=== PATIENT | male | born 1945 | race Caucasian/White ===

== ENCOUNTER 2017-08-06 02:35 | Day surgery (SDC) | payer OTHER ==
[~2017-08-06] VITALS: Ht 182.9 cm; Wt 102.0 kg
[~2017-08-06 02:35] MED LIST: 8HR ARTHRITIS650 MG PO; Atarax10 MG PO; CYCL10 PO; FOLI1 PO; LISI20 PO; METTREX2.5 PO; MULTI VITAMIN1 EACH PO; NIFE30ER PO; Nitrostat0.4 MG SL; PRAZ5 PO; SERT50 PO; SIMV80 PO; TAMS.4ER PO
== END 2017-08-06 11:00 | disposition home or self-care (01) ==
LOC: MHTC 02:35
PROC: B211YZZ Fluoroscopy of Multiple Coronary Arteries using Other Contrast (ICD-10-PCS; principal; 2017-08-06)
PROC: 4A023N7 Measurement of Cardiac Sampling and Pressure, Left Heart, Percutaneous Approach (ICD-10-PCS; principal; 2017-08-06)
DX: I20.8 Other forms of angina pectoris (principal); R94.39 Abnormal result of other cardiovascular function study; I10 Essential (primary) hypertension; E78.5 Hyperlipidemia, unspecified; G47.33 Obstructive sleep apnea (adult) (pediatric)
CPT/HCPCS: 93458; 99152; 99153; C1769; C1894; J0690; J1644; J2250; J3010; J7030; Q9967

== ENCOUNTER 2020-01-31 22:40 | Emergency (ER) | payer OTHER ==
[~2020-01-31] VITALS: Ht 182.9 cm; Wt 95.2 kg
[~2020-01-31 22:40] MED LIST changes: -NIFE30ER PO; +NIFE60ER PO; +SERT100 PO; -SERT50 PO
[2020-01-31 23:19] LABS: BASOPHILS ABSOLUTE AUTO 0.03 K/mm3 (0.00-0.23); BASOPHILS PERCENT AUTO 0 % (0-2); EOSINOPHILS ABSOLUTE AUTO 0.14 K/mm3 (0.00-0.68); EOSINOPHILS PERCENT AUTO 2 % (0-6); Hematocrit 41.8 % (37.0-53.0); Hemoglobin 13.8 g/dL (13.5-17.5); IMMATURE GRAN ABSOLUTE AUTO 0.03 K/mm3 (0.00-0.10); IMMATURE GRAN PERCENT AUTO 0 % (0-1); LYMPHOCYTES ABSOLUTE AUTO 0.88 K/mm3 (0.84-5.20); LYMPHOCYTES PERCENT AUTO 10 % (21-46); MONOCYTES ABSOLUTE AUTO 1.11 K/mm3 (0.16-1.47); MONOCYTES PERCENT AUTO 12 % (4-13); Mean Corpuscular HGB 32.4 pg (26.0-34.0); Mean Corpuscular Volume 98 fL (80-100); Mean Platelet Volume 10.5 fL (9.1-12.4); NEUTROPHILS ABSOLUTE AUTO 6.89 K/mm3 (1.96-9.15); NEUTROPHILS PERCENT AUTO 76 % (41-73); Platelet Count 179 K/mm3 (150-400); RDW Coefficient Variation 13.9 % (11.7-14.2); RDW Standard Deviation 50.4 fL (35.1-46.3); Red Blood Cell Count 4.26 M/mm3 (4.30-5.90); White Blood Cell Count 9.08 K/mm3 (4.00-11.30)
[2020-01-31 23:34] LABS: Alanine Aminotransfer (ALT/SGP 23 U/L (12-78); Albumin, Blood 3.7 g/dL (3.4-5.0); Albumin/Globulin Ratio 0.9 (0.8-1.8); Alk Phos 115 U/L (50-136); Anion Gap 5 mmol/L (6-16); Aspartate Aminotrans (AST/SGOT 20 U/L (12-37); Bilirubin, Total 0.5 mg/dL (0.1-1.0); Blood Urea Nitrogen 13 mg/dL (8-24); Bun/Creatinine Ratio 9.6 (12.0-20.0); CO2, Blood 30 mmol/L (21-32); Calcium, Blood 8.8 mg/dL (8.5-10.1); Chloride, Blood 106 mmol/L (98-108); Creatinine, Blood 1.36 mg/dL (0.60-1.20); Glomerular Filtration Rate 54 (60-); Glucose, Blood 124 mg/dL (70-99); Potassium, Blood 3.3 mmol/L (3.5-5.5); Sodium, Blood 141 mmol/L (136-145); Total Protein, Blood 7.7 g/dL (6.4-8.2); Troponin I <0.015 ng/mL (0.000-0.040)
[2020-02-01] MEDS ORDERED: BUPR150ER PO (00:57)
[2020-02-01] MEDS ORDERED: Aspir 8181 MG PO (00:57)
[2020-02-01] MEDS ORDERED: Isosorbide Mono30 MG PO (00:58)
[2020-02-01] MEDS ORDERED: Vitamin B-121000 MCG PO (00:58)
[2020-02-01] MEDS ORDERED: LISI5 PO (00:59)
[2020-02-01] MEDS ORDERED: MELA3 PO (01:00)
[2020-02-01] MEDS ORDERED: METO25ER PO (01:00)
[2020-02-01] MEDS ORDERED: RANO500T PO (01:01)
== END 2020-02-01 02:05 | disposition short-term general hospital (02) ==
LOC: ER 22:40
PROVIDERS: Emergency Medicine
DX: I71.02 Dissection of abdominal aorta (principal); Z88.5 Allergy status to narcotic agent; Z79.899 Other long term (current) drug therapy
CPT/HCPCS: 36415; 71046; 71275; 74175; 80053; 83605; 84484; 85025; 93005; 93010; 96361; 96365; 96375; 99285-25; J2270; J2405; J3010; J7030; J7050; Q9967; U0004

== ENCOUNTER 2020-06-03 12:26 | Emergency (ER) | payer OTHER ==
[~2020-06-03] VITALS: Ht 182.9 cm; Wt 93.0 kg
[~2020-06-03 12:26] MED LIST changes: +Aspir 8181 MG PO; +BUPR150ER PO; +Isosorbide Mono30 MG PO; +LISI5 PO; +MELA3 PO; +METO25ER PO; +RANO500T PO; +Vitamin B-121000 MCG PO
[2020-06-03 13:29] LABS: BASOPHILS ABSOLUTE AUTO 0.03 K/mm3 (0.00-0.23); BASOPHILS PERCENT AUTO 0 % (0-2); EOSINOPHILS PERCENT AUTO 1 % (0-6); Hematocrit 39.5 % (37.0-53.0); Hemoglobin 12.9 g/dL (13.5-17.5); IMMATURE GRAN ABSOLUTE AUTO 0.02 K/mm3 (0.00-0.10); IMMATURE GRAN PERCENT AUTO 0 % (0-1); LYMPHOCYTES ABSOLUTE AUTO 0.66 K/mm3 (0.84-5.20); LYMPHOCYTES PERCENT AUTO 9 % (21-46); MONOCYTES ABSOLUTE AUTO 0.58 K/mm3 (0.16-1.47); MONOCYTES PERCENT AUTO 8 % (4-13); Mean Corpuscular HGB 30.1 pg (26.0-34.0); Mean Corpuscular HGB Conc 32.7 g/dL (31.5-36.5); Mean Corpuscular Volume 92 fL (80-100); Mean Platelet Volume 9.7 fL (9.1-12.4); NEUTROPHILS ABSOLUTE AUTO 5.94 K/mm3 (1.96-9.15); NEUTROPHILS PERCENT AUTO 81 % (41-73); Platelet Count 171 K/mm3 (150-400); RDW Coefficient Variation 16.2 % (11.7-14.2); RDW Standard Deviation 54.1 fL (35.1-46.3); Red Blood Cell Count 4.29 M/mm3 (4.30-5.90); White Blood Cell Count 7.33 K/mm3 (4.00-11.30)
[2020-06-03 13:49] LABS: Alanine Aminotransfer (ALT/SGP 19 U/L (12-78); Albumin, Blood 3.3 g/dL (3.4-5.0); Albumin/Globulin Ratio 0.7 (0.8-1.8); Alk Phos 111 U/L (50-136); Anion Gap 7 mmol/L (6-16); Aspartate Aminotrans (AST/SGOT 16 U/L (12-37); Bilirubin, Total 0.3 mg/dL (0.1-1.0); Blood Urea Nitrogen 14 mg/dL (8-24); Bun/Creatinine Ratio 11.5 (12.0-20.0); CO2, Blood 26 mmol/L (21-32); Calcium, Blood 8.9 mg/dL (8.5-10.1); Chloride, Blood 108 mmol/L (98-108); Creatinine, Blood 1.22 mg/dL (0.60-1.20); Glomerular Filtration Rate >60 (60-); Glucose, Blood 132 mg/dL (70-99); Potassium, Blood 3.1 mmol/L (3.5-5.5); Sodium, Blood 141 mmol/L (136-145); Total Protein, Blood 8.3 g/dL (6.4-8.2)
== END 2020-06-03 15:20 | disposition home or self-care (01) ==
LOC: ER 12:26
PROVIDERS: Physician Assistant
DX: R03.0 Elevated blood-pressure reading, without diagnosis of hypertension (principal); Z79.899 Other long term (current) drug therapy; Z87.891 Personal history of nicotine dependence
CPT/HCPCS: 36415; 71046; 80053; 84484; 85025; 93005; 93010; 99285-25

== ENCOUNTER 2023-02-11 13:03 | Emergency (ER) | payer OTHER ==
[~2023-02-11] VITALS: Ht 182.9 cm; Wt 99.8 kg
[~2023-02-11 13:03] MED LIST changes: +LOPE2C PO
[2023-02-11 13:51] LABS: BASOPHILS ABSOLUTE AUTO 0.01 K/mm3 (0.00-0.23); BASOPHILS PERCENT AUTO 0 % (0-2); EOSINOPHILS ABSOLUTE AUTO 0.01 K/mm3 (0.00-0.68); EOSINOPHILS PERCENT AUTO 0 % (0-6); Hematocrit 38.1 % (37.0-53.0); Hemoglobin 12.9 g/dL (13.5-17.5); IMMATURE GRAN ABSOLUTE AUTO 0.01 K/mm3 (0.00-0.10); IMMATURE GRAN PERCENT AUTO 0 % (0-1); LYMPHOCYTES ABSOLUTE AUTO 0.29 K/mm3 (0.84-5.20); LYMPHOCYTES PERCENT AUTO 5 % (21-46); MONOCYTES ABSOLUTE AUTO 0.76 K/mm3 (0.16-1.47); MONOCYTES PERCENT AUTO 14 % (4-13); Mean Corpuscular HGB 32.7 pg (26.0-34.0); Mean Corpuscular HGB Conc 33.9 g/dL (31.5-36.5); Mean Corpuscular Volume 97 fL (80-100); Mean Platelet Volume 9.8 fL (9.1-12.4); NEUTROPHILS ABSOLUTE AUTO 4.26 K/mm3 (1.96-9.15); NEUTROPHILS PERCENT AUTO 80 % (41-73); Platelet Count 119 K/mm3 (150-400); RDW Coefficient Variation 14.4 % (11.7-14.2); RDW Standard Deviation 50.9 fL (35.1-46.3); Red Blood Cell Count 3.94 M/mm3 (4.30-5.90); White Blood Cell Count 5.34 K/mm3 (4.00-11.30)
[2023-02-11 14:13] LABS: Albumin, Blood 3.3 g/dL (3.4-5.0); Albumin/Globulin Ratio 0.8 (0.8-1.8); Bilirubin, Total 0.4 mg/dL (0.1-1.0); Bun/Creatinine Ratio 11.7 (12.0-20.0); Calcium, Blood 8.5 mg/dL (8.5-10.1); Creatinine, Blood 1.03 mg/dL (0.60-1.20); Potassium, Blood 3.1 mmol/L (3.5-5.5); Total Protein, Blood 7.3 g/dL (6.4-8.2)
[2023-02-11 17:30] VITALS: BP 187/99
[2023-02-11] MEDS ORDERED: GABA300 PO (17:34)
== END 2023-02-11 17:39 | disposition home or self-care (01) ==
LOC: ER 13:03
PROVIDERS: Physician Assistant
DX: M54.81 Occipital neuralgia (principal); I10 Essential (primary) hypertension; Z88.5 Allergy status to narcotic agent; Z79.899 Other long term (current) drug therapy; Z87.891 Personal history of nicotine dependence
CPT/HCPCS: 64405; 71046; 80053; 83690; 84484; 85025; 93005; 93010; 96374-59; 96375-59; 99284-25; A9270; J1885; J2765

== ENCOUNTER 2023-03-10 02:37 | Observation (INO) | payer OTHER ==
[~2023-03-10] VITALS: Ht 182.9 cm; Wt 91.1 kg
[~2023-03-10 02:37] MED LIST changes: +GABA300 PO; -LISI20 PO; +Prinivil10 MG PO; +RANEXA1000 M1 PO; -RANO500T PO
[2023-03-10 03:19] LABS: BASOPHILS ABSOLUTE AUTO 0.03 K/mm3 (0.00-0.23); BASOPHILS PERCENT AUTO 0 % (0-2); EOSINOPHILS ABSOLUTE AUTO 0.01 K/mm3 (0.00-0.68); EOSINOPHILS PERCENT AUTO 0 % (0-6); Hematocrit 40.6 % (37.0-53.0); Hemoglobin 13.9 g/dL (13.5-17.5); IMMATURE GRAN ABSOLUTE AUTO 0.07 K/mm3 (0.00-0.10); IMMATURE GRAN PERCENT AUTO 1 % (0-1); LYMPHOCYTES ABSOLUTE AUTO 0.37 K/mm3 (0.84-5.20); LYMPHOCYTES PERCENT AUTO 4 % (21-46); MONOCYTES ABSOLUTE AUTO 0.51 K/mm3 (0.16-1.47); MONOCYTES PERCENT AUTO 5 % (4-13); Mean Corpuscular HGB 33.3 pg (26.0-34.0); Mean Corpuscular HGB Conc 34.2 g/dL (31.5-36.5); Mean Corpuscular Volume 97 fL (80-100); Mean Platelet Volume 9.5 fL (9.1-12.4); NEUTROPHILS ABSOLUTE AUTO 8.95 K/mm3 (1.96-9.15); NEUTROPHILS PERCENT AUTO 90 % (41-73); Platelet Count 170 K/mm3 (150-400); RDW Coefficient Variation 14.3 % (11.7-14.2); RDW Standard Deviation 50.3 fL (35.1-46.3); Red Blood Cell Count 4.17 M/mm3 (4.30-5.90); White Blood Cell Count 9.94 K/mm3 (4.00-11.30)
[2023-03-10 03:37] LABS: Albumin, Blood 3.8 g/dL (3.4-5.0); Albumin/Globulin Ratio 0.8 (0.8-1.8); Bilirubin, Total 0.5 mg/dL (0.1-1.0); Bun/Creatinine Ratio 12.6 (12.0-20.0); Calcium, Blood 9.1 mg/dL (8.5-10.1); Creatinine, Blood 1.9 mg/dL (0.60-1.20); Globulin, Blood 4.6 g/dL (2.2-4.0); Potassium, Blood 3.4 mmol/L (3.5-5.5); Total Protein, Blood 8.4 g/dL (6.4-8.2)
[2023-03-10 04:10] LABS: Source, Urine Clean Catch
[2023-03-10 04:12] LABS: Bilirubin, Urine Neg (Neg); Blood, Urine 3+ (Neg); Glucose Qualitative, Urine Neg (Neg); Ketones, Urine Neg (Neg); Leukocyte Esterase, Urine Neg (Neg); Nitrite, Urine Neg (Neg); Protein, Urine 1+ (Neg); Urobilinogen, Urine NORM (Normal)
[2023-03-10 04:39] LABS: Appearance, Urine Clear (Clear); Color, Urine Yellow (P-Yellow)
[2023-03-10 04:40] LABS: Bacteria Few /hpf; Squamous Epithelial Cells Not Seen /hpf (Few); White Blood Cells, Urine 0-2 /hpf (0-5)
[2023-03-10 07:30] VITALS: BP 184/104
[2023-03-10] MEDS ORDERED: EUTHYROX88 MCG PO (07:57)
[2023-03-10] MEDS ORDERED: AMLO10 PO (07:57)
[2023-03-10] MEDS ORDERED: MINIPRESS5 MG PO (07:58)
[2023-03-10] MEDS ORDERED: Buspirone HCl15 MG PO ×2 (08:01→15:10)
[2023-03-10] MEDS ORDERED: Elidel30 GM TOP (08:01)
[2023-03-10] MEDS ORDERED: GABA300 PO (08:03)
[2023-03-10 09:00] VITALS: BP 142/74
[2023-03-10 12:11] VITALS: BP 145/68
[2023-03-10 13:19] LABS: Bun/Creatinine Ratio 13.9 (12.0-20.0); Calcium, Blood 8.4 mg/dL (8.5-10.1); Creatinine, Blood 1.66 mg/dL (0.60-1.20); Potassium, Blood 3.1 mmol/L (3.5-5.5)
[2023-03-10] MEDS ORDERED: METO100ER PO (14:18)
[2023-03-10] MEDS ORDERED: BISA5EC PO (14:24)
[2023-03-10] MEDS ORDERED: ATOR40TA PO (14:25)
[2023-03-10] MEDS ORDERED: FERSU300 PO (14:26)
[2023-03-10] MEDS ORDERED: DOC250 PO (14:26)
[2023-03-10] MEDS ORDERED: FOLI1 PO (14:27)
[2023-03-10] MEDS ORDERED: FINA5 PO (14:27)
--- NOTE | 2023-03-10 14:30 | NUR ---
Confirmed the home medication list with Pamella, pt's , by phone.
[2023-03-10 14:38] VITALS: BP 137/83
[2023-03-10 17:36] VITALS: BP 151/79
--- NOTE | 2023-03-10 18:43 | NUR ---
TRANSFER 337 PT TRANSFERED FROM PCU 9 TO 337 VIA W/C. REPORT RECIEVED FROM LORE GUILLEN. CARE ONGOING.
[2023-03-10 20:42] VITALS: BP 159/83
[2023-03-11] MEDS ORDERED: Inzo Antifun141.7 GM TOP (02:29)
[2023-03-11] MEDS ORDERED: LACT PO (02:29)
[2023-03-11] MEDS ORDERED: LIDO700A20 TOP (02:30)
[2023-03-11] MEDS ORDERED: POLYCARBOPHIL PO (02:31)
[2023-03-11] MEDS ORDERED: MAGNESIUM OXID500 MG PO (02:32)
[2023-03-11] MEDS ORDERED: ALEVE ARTHRITI100 GM TOP (02:37)
[2023-03-11] MEDS ORDERED: Ketoconazole120 ML TOP (02:37)
--- NOTE | 2023-03-11 04:03 | NUR ---
SHIFT SUMMARY 73 YR M TRANSFERED TO MEDICAL FLOOR FROM PCU ON 03/10/23 FOR ACUTE RENAL INSUFFICIENCY. FULL CODE. NO ACUTE CHANGES THIS SHIFT. PT STATES THAT HE IS NO LONGER HAVING PAIN AND HE IS FEELING MUCH BETTER. HE APPEARS TO HAVE RESTED COMFORTABLY FOR MOST OF THIS SHIFT. CHENG IS PATENT AND DRAINING TO GRAVITY. PT IS VERY PLEASANT AND COOPERATIVE WITH CARE. BED IN LOW POSITION AND CALL LIGHT IN REACH.
[2023-03-11 04:16] VITALS: BP 173/92
[2023-03-11 05:14] LABS: BASOPHILS ABSOLUTE AUTO 0.03 K/mm3 (0.00-0.23); BASOPHILS PERCENT AUTO 0 % (0-2); EOSINOPHILS ABSOLUTE AUTO 0.19 K/mm3 (0.00-0.68); EOSINOPHILS PERCENT AUTO 2 % (0-6); Hematocrit 34.4 % (37.0-53.0); Hemoglobin 11.7 g/dL (13.5-17.5); IMMATURE GRAN ABSOLUTE AUTO 0.09 K/mm3 (0.00-0.10); IMMATURE GRAN PERCENT AUTO 1 % (0-1); LYMPHOCYTES ABSOLUTE AUTO 0.97 K/mm3 (0.84-5.20); LYMPHOCYTES PERCENT AUTO 10 % (21-46); MONOCYTES ABSOLUTE AUTO 1.12 K/mm3 (0.16-1.47); MONOCYTES PERCENT AUTO 12 % (4-13); Mean Corpuscular Volume 97 fL (80-100); Mean Platelet Volume 9.6 fL (9.1-12.4); NEUTROPHILS ABSOLUTE AUTO 7.14 K/mm3 (1.96-9.15); NEUTROPHILS PERCENT AUTO 75 % (41-73); Platelet Count 165 K/mm3 (150-400); RDW Coefficient Variation 14.7 % (11.7-14.2); RDW Standard Deviation 52.4 fL (35.1-46.3); Red Blood Cell Count 3.55 M/mm3 (4.30-5.90); White Blood Cell Count 9.54 K/mm3 (4.00-11.30)
[2023-03-11 06:37] LABS: Albumin, Blood 2.9 g/dL (3.4-5.0); Albumin/Globulin Ratio 0.8 (0.8-1.8); Bilirubin, Total 0.6 mg/dL (0.1-1.0); Calcium, Blood 8.4 mg/dL (8.5-10.1); Creatinine, Blood 1.6 mg/dL (0.60-1.20); Globulin, Blood 3.6 g/dL (2.2-4.0); Magnesium, Blood 2.3 mg/dL (1.6-2.4); Potassium, Blood 3.2 mmol/L (3.5-5.5); Total Protein, Blood 6.5 g/dL (6.4-8.2)
[2023-03-11 07:24] VITALS: BP 163/86
[2023-03-11] MEDS ORDERED: ACET325 PO (11:16)
--- NOTE | 2023-03-11 14:10 | NUR ---
DISCHARGE UPDATE DISCHARGE PACKET GONE OVER WITH PT AND PT 1335. PT DISCCHARGED AT 1350 VIS WHEELCHAIR AND ON RA. PT ABLE TO TRANSFER SELF TO AND FROM WHEELCHAIR ON HIS OWN, TOLERATED WELL. PT DISCHARGED WITH CHENG IN PLACE PER MD. PT AND EDUCATED ON CATHETER CARE AND DRAINING. PT PERSONAL BELONGINGS IN BAGS AND WITH PT AT TIME OF DISCAHRGE. DISVCHARGE PACKET WITH AT TIME OF DISCHARGE.
== END 2023-03-11 14:51 | disposition home or self-care (01) ==
LOC: ER 02:37 → PCU 06:09 → MEDS 06:09 → PCU 07:45 → MEDS 18:26 → ENPENDDIS 03-11 10:12 → MEDS 03-11 14:51
PROVIDERS: Emergency Medicine; Family Medicine; ADMIT Student in an Organized Health Care Education/Training Program
DX: N17.9 Acute kidney failure, unspecified (principal); N13.2 Hydronephrosis with renal and ureteral calculous obstruction; R33.9 Retention of urine, unspecified; E87.6 Hypokalemia; D64.9 Anemia, unspecified; I12.9 Hypertensive chronic kidney disease with stage 1 through stage 4 chronic kidney disease, or unspecified chronic kidney disease; N18.30 Chronic kidney disease, stage 3 unspecified; G47.33 Obstructive sleep apnea (adult) (pediatric); E78.5 Hyperlipidemia, unspecified; Z87.891 Personal history of nicotine dependence; Z88.5 Allergy status to narcotic agent; Z79.899 Other long term (current) drug therapy
CPT/HCPCS: 36415; 51702; 71275; 74174; 80048; 80053; 81001; 83690; 83735; 85025; 93005; 93010; 96372; 96374-59; 96375-59; 96376; 99285-25; A9270; G0378; J0360; J1644; J3010; Q9967

== ENCOUNTER 2023-07-14 17:11 | Observation (INO) | payer OTHER ==
[~2023-07-14] VITALS: Ht 182.9 cm; Wt 89.4 kg
[~2023-07-14 17:11] MED LIST changes: +ACET325 PO; +ALEVE ARTHRITI100 GM TOP; +AMLO10 PO; +AMLO5 PO; +ATOR40TA PO; +BISA5EC PO; +Buspirone HCl15 MG PO; +DOC250 PO; +EUTHYROX88 MCG PO; +Elidel30 GM TOP; +FERSU300 PO; +FINA5 PO; +FOLI1; +Inzo Antifun141.7 GM TOP; +KETO15TC; +Keflex250 MG PO; +Ketoconazole120 ML TOP; +LACT PO; +LIDO700A20 TOP; +MAGNESIUM OXID500 MG PO; +METO100ER PO; +MINIPRESS5 MG PO; +POLY500; +POLYCARBOPHIL PO; +PRAZ1 PO; +SERT100; -SERT100 PO; +VANCOCIN HCL250 MG PO; +Voltaren100 GM TOP
[2023-07-14 18:39] LABS: Albumin/Globulin Ratio 0.7 (0.8-1.8); Bilirubin, Total 0.3 mg/dL (0.1-1.0); Bun/Creatinine Ratio 16.2 (12.0-20.0); Calcium, Blood 8.6 mg/dL (8.5-10.1); Creatinine, Blood 1.54 mg/dL (0.60-1.20); Globulin, Blood 4.2 g/dL (2.2-4.0); Total Protein, Blood 7.2 g/dL (6.4-8.2)
[2023-07-14 18:41] LABS: BASOPHILS ABSOLUTE AUTO 0.02 K/mm3 (0.00-0.23); BASOPHILS PERCENT AUTO 0 % (0-2); EOSINOPHILS PERCENT AUTO 1 % (0-6); IMMATURE GRAN ABSOLUTE AUTO 0.07 K/mm3 (0.00-0.10); IMMATURE GRAN PERCENT AUTO 1 % (0-1); LYMPHOCYTES ABSOLUTE AUTO 0.94 K/mm3 (0.84-5.20); LYMPHOCYTES PERCENT AUTO 7 % (21-46); MONOCYTES ABSOLUTE AUTO 0.96 K/mm3 (0.16-1.47); MONOCYTES PERCENT AUTO 7 % (4-13); Mean Corpuscular HGB 32.1 pg (26.0-34.0); Mean Corpuscular HGB Conc 32.4 g/dL (31.5-36.5); Mean Corpuscular Volume 99 fL (80-100); Mean Platelet Volume 10.1 fL (9.1-12.4); NEUTROPHILS ABSOLUTE AUTO 11.22 K/mm3 (1.96-9.15); NEUTROPHILS PERCENT AUTO 84 % (41-73); Platelet Count 134 K/mm3 (150-400); RDW Coefficient Variation 18.5 % (11.7-14.2); RDW Standard Deviation 66.1 fL (35.1-46.3); Red Blood Cell Count 3.43 M/mm3 (4.30-5.90); White Blood Cell Count 13.31 K/mm3 (4.00-11.30)
[2023-07-14] MEDS ORDERED: TAMS.4ER PO (19:29)
[2023-07-14] MEDS ORDERED: SERT100 PO (19:30)
[2023-07-14] MEDS ORDERED: MAGNESIUM OXID500 MG PO (19:31)
[2023-07-14] MEDS ORDERED: Elidel30 GM (19:31)
[2023-07-14] MEDS ORDERED: Woman's Laxative5 MG PO (19:34)
[2023-07-14] MEDS ORDERED: Buspirone HCl15 MG PO (19:35)
[2023-07-14] MEDS ORDERED: Acetaminophen 325 MG TABLET PO PRN (20:35)
[2023-07-14] MEDS ORDERED: Ondansetron HCl 2 MG / ML 2ML Vial IV PRN (20:35)
[2023-07-14] MEDS ORDERED: Aspirin 81 MG Chew PO ONE (20:35)
[2023-07-14] MEDS ORDERED: Prazosin HCl 1 MG Cap PO SCH (21:00)
[2023-07-14] MEDS ORDERED: Ranolazine 500 MG ER Tablet PO SCH (21:00)
[2023-07-14] MEDS ORDERED: BusPIRone HCl 10 MG Tab PO SCH (21:00)
[2023-07-14] MEDS ORDERED: Gabapentin 300 MG Cap PO SCH (21:30)
[2023-07-14 22:16] VITALS: BP 144/66
[2023-07-15 04:58] VITALS: BP 140/78
--- NOTE | 2023-07-15 05:43 | NUR ---
PATIENT RECEIVED DURING SHIFT FROM ED. Leti OLIVIA AND Emma X4. NO C/O PAIN, HAD CHEST PAIN AT DR APPOINTMENT 07/14/23 THAT BROUGHT HIM TO OUR ED AND THEN ADMITTED. COOPERATIVE WITH CARES. SKIN IN GOOD CONDITION, STATES USES CANE AND AMBULATES "OFTEN" AT HOME.
[2023-07-15] MEDS ORDERED: Levothyroxine Sodium 0.088 MG Tab PO SCH (06:00)
[2023-07-15 06:29] LABS: Hematocrit 31.4 % (37.0-53.0); Hemoglobin 10.1 g/dL (13.5-17.5); Mean Corpuscular HGB 31.6 pg (26.0-34.0); Mean Corpuscular HGB Conc 32.2 g/dL (31.5-36.5); Mean Corpuscular Volume 98 fL (80-100); Mean Platelet Volume 10.8 fL (9.1-12.4); Platelet Count 126 K/mm3 (150-400); RDW Coefficient Variation 18.4 % (11.7-14.2); RDW Standard Deviation 65.1 fL (35.1-46.3); White Blood Cell Count 16.81 K/mm3 (4.00-11.30)
[2023-07-15 06:47] LABS: Bun/Creatinine Ratio 18.5 (12.0-20.0); Calcium, Blood 8.6 mg/dL (8.5-10.1); Creatinine, Blood 1.3 mg/dL (0.60-1.20); Potassium, Blood 3.9 mmol/L (3.5-5.5)
[2023-07-15 07:47] VITALS: BP 142/76
--- NOTE | 2023-07-15 08:48 | NUR ---
Pt laying in bed, stress test was ordered, informed pt he can have water only until hes injected, will save meal tray, a/ox4, pleasant and coopertive with care, follows commands well, reports a very mild discomfort in the left chest, denies sob, or nausea, lungs are clear t/o, resp even and unlabored, no cough noted, on r/a hrr, tele in place running sb in high 50's, Dr. Colón in room, asked to hold metoprolol, swallows po meds without diff, no edema noted, ppp+2, cap refill <3 sec, vs stable, afebriel, piv to left hand site is clear and patent, btx4, abd flat soft nontender, voids without diff, skin c/w/d, og brown, call light in reach.
[2023-07-15] MEDS ORDERED: Gabapentin 300 MG Cap PO SCH (09:00)
[2023-07-15] MEDS ORDERED: Heparin Sodium,Porcine 5,000 UNIT/0.5 ML SDV SC SCH (09:00)
[2023-07-15] MEDS ORDERED: Metoprolol Succinate 50 MG TABCR PO SCH (09:00)
[2023-07-15] MEDS ORDERED: Tamsulosin HCl 0.4 MG Cap PO SCH (09:00)
[2023-07-15] MEDS ORDERED: AmLODIPine Besylate 5 MG Tab PO SCH (09:00)
[2023-07-15] MEDS ORDERED: Folic Acid 1 MG TAB PO SCH (09:00)
[2023-07-15] MEDS ORDERED: Sertraline HCl 100 MG Tab PO SCH (09:00)
[2023-07-15] MEDS ORDERED: Lisinopril 10 MG Tab PO SCH (09:00)
[2023-07-15] MEDS ORDERED: Atorvastatin 40 MG Tab PO SCH (09:00)
[2023-07-15] MEDS ORDERED: Regadenoson 0.4 MG/5 ML SYRINGE ONE (13:45)
[2023-07-15] MEDS ORDERED: Aminophylline 250MG / 10ML 10 ML Vial ONE (13:45)
[2023-07-15 15:21] VITALS: BP 133/68
--- NOTE | 2023-07-15 18:10 | NUR ---
pt had a one day stress today, report is in, notified Dr. Colón regarding results, she is discharging him at this time. no further changes with pt. call light in reach.
--- NOTE | 2023-07-15 20:12 | NUR ---
PT DISCHARGED, WENT OVER DISCHARGE PACKET WITH PATIENT WITH AT BEDSIDE. PT DID NOT HAVE ANY QUESTIONS, VERBALIZED UNDERSTANDING. BELONGINGS COLLECTED AND SENT WITH PT.
[2023-07-21] MEDS ORDERED: Methotrexate Sod 2.5 MG Tab PO SCH (09:00)
== END 2023-07-15 20:16 | disposition home or self-care (01) ==
LOC: ER 17:11 → MEDS 17:12
PROVIDERS: Emergency Medicine; Nurse Practitioner; Nurse Practitioner Acute Care; ADMIT Internal Medicine
DX: R07.89 Other chest pain (principal); D72.829 Elevated white blood cell count, unspecified; N40.0 Benign prostatic hyperplasia without lower urinary tract symptoms; D64.9 Anemia, unspecified; D69.6 Thrombocytopenia, unspecified; I12.9 Hypertensive chronic kidney disease with stage 1 through stage 4 chronic kidney disease, or unspecified chronic kidney disease; N18.30 Chronic kidney disease, stage 3 unspecified; E78.5 Hyperlipidemia, unspecified; E03.9 Hypothyroidism, unspecified; G47.33 Obstructive sleep apnea (adult) (pediatric); I25.10 Atherosclerotic heart disease of native coronary artery without angina pectoris; Z88.5 Allergy status to narcotic agent; Z79.899 Other long term (current) drug therapy
CPT/HCPCS: 36415; 71046; 78452; 80048; 80053; 84484; 85025; 85027; 93005; 93010; 93017; 93308; 93321; 94660; 96372; 99285-25; A9270; A9500; G0378; J0280; J1644; J2785

== ENCOUNTER 2023-07-22 20:51 | Inpatient (IN) | payer OTHER ==
[~2023-07-22] VITALS: Ht 182.9 cm; Wt 87.5 kg
[~2023-07-22 20:51] MED LIST changes: +Elidel30 GM; +SERT100 PO; +Woman's Laxative5 MG PO
[2023-07-22 21:41] LABS: BASOPHILS ABSOLUTE AUTO 0.06 K/mm3 (0.00-0.23); BASOPHILS PERCENT AUTO 0 % (0-2); EOSINOPHILS ABSOLUTE AUTO 0.12 K/mm3 (0.00-0.68); EOSINOPHILS PERCENT AUTO 1 % (0-6); Hematocrit 37.5 % (37.0-53.0); Hemoglobin 12.2 g/dL (13.5-17.5); IMMATURE GRAN ABSOLUTE AUTO 0.13 K/mm3 (0.00-0.10); IMMATURE GRAN PERCENT AUTO 1 % (0-1); LYMPHOCYTES ABSOLUTE AUTO 0.89 K/mm3 (0.84-5.20); LYMPHOCYTES PERCENT AUTO 4 % (21-46); MONOCYTES ABSOLUTE AUTO 1.28 K/mm3 (0.16-1.47); MONOCYTES PERCENT AUTO 6 % (4-13); Mean Corpuscular HGB 31.9 pg (26.0-34.0); Mean Corpuscular HGB Conc 32.5 g/dL (31.5-36.5); Mean Corpuscular Volume 98 fL (80-100); NEUTROPHILS ABSOLUTE AUTO 18.34 K/mm3 (1.96-9.15); NEUTROPHILS PERCENT AUTO 88 % (41-73); Platelet Count 273 K/mm3 (150-400); RDW Coefficient Variation 17.5 % (11.7-14.2); Red Blood Cell Count 3.83 M/mm3 (4.30-5.90); White Blood Cell Count 20.82 K/mm3 (4.00-11.30)
[2023-07-22] MEDS ORDERED: LOPE2C (21:48)
[2023-07-22 21:56] LABS: International Normalized Ratio 1.08; Prothrombin Time Results 11.5 Sec (9.7-11.5)
[2023-07-22 22:19] LABS: Albumin, Blood 2.7 g/dL (3.4-5.0); Albumin/Globulin Ratio 0.6 (0.8-1.8); Bilirubin, Total 0.5 mg/dL (0.1-1.0); Bun/Creatinine Ratio 11.8 (12.0-20.0); Calcium, Blood 8.7 mg/dL (8.5-10.1); Creatinine, Blood 1.27 mg/dL (0.60-1.20); Globulin, Blood 4.4 g/dL (2.2-4.0); Total Protein, Blood 7.1 g/dL (6.4-8.2)
[2023-07-22] MEDS ORDERED: Potassium Chloride 40 MEQ in NS 250 ML IV ONE (22:50)
[2023-07-22] MEDS ORDERED: NS 1,000 ML IV SCH (22:50)
[2023-07-22 23:32] LABS: Source, Urine Clean Catch
[2023-07-22 23:34] LABS: Appearance, Urine Clear (Clear); Bilirubin, Urine Neg (Neg); Blood, Urine 2+ (Neg); Color, Urine Yellow (P-Yellow); Glucose Qualitative, Urine Neg (Neg); Ketones, Urine Neg (Neg); Leukocyte Esterase, Urine Neg (Neg); Nitrite, Urine Neg (Neg); Protein, Urine 2+ (Neg); Urobilinogen, Urine NORM (Normal)
[2023-07-22 23:51] LABS: White Blood Cells, Urine 0-2 /hpf (0-5)
[2023-07-22 23:52] LABS: Bacteria Few /hpf; Squamous Epithelial Cells Few /hpf (Few)
[2023-07-23] MEDS ORDERED: Acetaminophen 325 MG TABLET PO PRN (01:40)
[2023-07-23] MEDS ORDERED: Ondansetron 4 MG TAB PO PRN (01:40)
[2023-07-23 02:21] LABS: Adenovirus F 40/41 Not Detected (NOT DETECT); Astrovirus Not Detected (NOT DETECT); Campylobacter Sp Not Detected (NOT DETECT); Cryptosporidium Not Detected (NOT DETECT); Cyclospora Cayetanensis Not Detected (NOT DETECT); E. Coli O157 Not Detected (NOT DETECT); Entamoeba Histolytica Not Detected (NOT DETECT); Enteroaggregative E. coli-EAEC Not Detected (NOT DETECT); Enteropathogenic E. coli-EPEC Not Detected (NOT DETECT); Enterotoxigenic E. coli-ETEC Not Detected (NOT DETECT); Giardia Lamblia Not Detected (NOT DETECT); Norovirus GI/GII Not Detected (NOT DETECT); Plesiomonas Shigelloides Not Detected (NOT DETECT); Salmonella Sp Not Detected (NOT DETECT); Shiga Toxin-prod E. coli-STEC Not Detected (NOT DETECT); Shigella/Enteroin E. coli-EIEC Not Detected (NOT DETECT); Vibrio Cholerae Not Detected (NOT DETECT); Vibrio Sp Not Detected (NOT DETECT); Yersinia Enterocolitica Not Detected (NOT DETECT)
[2023-07-23 02:22] LABS: Rotavirus A Not Detected (NOT DETECT); Sapovirus Not Detected (NOT DETECT)
[2023-07-23] MEDS ORDERED: Lactated Ringer's 1,000 ML IV SCH (02:30)
[2023-07-23 02:55] VITALS: BP 152/67
[2023-07-23] MEDS ORDERED: Fidaxomicin 200 MG Tab PO SCH (04:00)
[2023-07-23 05:52] LABS: BASOPHILS ABSOLUTE AUTO 0.03 K/mm3 (0.00-0.23); BASOPHILS PERCENT AUTO 0 % (0-2); EOSINOPHILS ABSOLUTE AUTO 0.16 K/mm3 (0.00-0.68); EOSINOPHILS PERCENT AUTO 1 % (0-6); Hematocrit 29.2 % (37.0-53.0); Hemoglobin 9.8 g/dL (13.5-17.5); IMMATURE GRAN ABSOLUTE AUTO 0.08 K/mm3 (0.00-0.10); IMMATURE GRAN PERCENT AUTO 1 % (0-1); LYMPHOCYTES ABSOLUTE AUTO 0.84 K/mm3 (0.84-5.20); LYMPHOCYTES PERCENT AUTO 6 % (21-46); MONOCYTES ABSOLUTE AUTO 1.18 K/mm3 (0.16-1.47); MONOCYTES PERCENT AUTO 8 % (4-13); Mean Corpuscular HGB 32.5 pg (26.0-34.0); Mean Corpuscular HGB Conc 33.6 g/dL (31.5-36.5); Mean Corpuscular Volume 97 fL (80-100); Mean Platelet Volume 10.1 fL (9.1-12.4); NEUTROPHILS ABSOLUTE AUTO 13.11 K/mm3 (1.96-9.15); NEUTROPHILS PERCENT AUTO 85 % (41-73); Platelet Count 220 K/mm3 (150-400); RDW Coefficient Variation 17.5 % (11.7-14.2); Red Blood Cell Count 3.02 M/mm3 (4.30-5.90)
[2023-07-23 06:13] LABS: Albumin/Globulin Ratio 0.6 (0.8-1.8); Bilirubin, Total 0.3 mg/dL (0.1-1.0); Bun/Creatinine Ratio 12.1 (12.0-20.0); Calcium, Blood 8.2 mg/dL (8.5-10.1); Creatinine, Blood 1.16 mg/dL (0.60-1.20); Globulin, Blood 3.3 g/dL (2.2-4.0); Potassium, Blood 3.5 mmol/L (3.5-5.5); Total Protein, Blood 5.3 g/dL (6.4-8.2)
--- NOTE | 2023-07-23 07:36 | NUR ---
ADMIT NOTE. A/OX4. SKIN INTACT APART FROM [place]UISE TO R KNEE. BILAT IV'S, ONE SALINE LOCKED. LR INFUSING AT 150 ML/HR FOR ONE BAG. C-DIFF, ENTERIC PRECAUTIONS. STOOL OCCULT SENT THIS AM, STILL PENDING. NO BLOOD VISULAIZED IN STOOL. PT REPORTS HEMORROID, VISUALIZED, BUT NOT EXTERNAL. TELEMETRY MONITORING, SR IN 80'S ON PLACEMENT. TELE CALLED AT 0726 TO REPORT 4 SECOND RUN OF SVT, REPORTED THIS TO DAY SHIFT RN REFUGIO WHO WILL MENTION IT TO HOSPITALIST. PT VISUALED AND RESTING IN BED, RESPIRATIONS EVEN AND UNLABORED. NO S/S OF DISTRESS. 4O MEQ OF POTASSIUM ADMINISTERED. SCD'S IN PLACE. CALL LIGHT IN REACH. STAND-BY TO BSC. CALLS APPROPRIATELY.
[2023-07-23 07:55] VITALS: BP 150/74
[2023-07-23] MEDS ORDERED: Lactobacil 2-S.Thermo-Bifido 1 1 Cap PO SCH (09:00)
[2023-07-23] MEDS ORDERED: Metoprolol Tartrate 25 MG Tab PO SCH (09:00)
[2023-07-23 12:15] LABS: Stool Occult Blood Guaiac 1 Neg (Neg)
[2023-07-23] MEDS ORDERED: DICLOFENAC 1% TOPICAL GEL TOP PRN (14:35)
[2023-07-23] MEDS ORDERED: NS 1,000 ML IV SCH (14:55)
[2023-07-23] MEDS ORDERED: Folic Acid 1 MG TAB PO SCH (15:00)
--- NOTE | 2023-07-23 15:56 | NUR ---
SHIFT SUMMARY MR JIMENEZ HAS BEEN UP TO THE BEDSIDE COMMODE FREQUENTLY FOR LOOSE STOOL AND URINATION. HE C/O FEELING WEAK AND DIZZY AT TIMES. HE USES THE CALL LIGHT TO GET ASSISTANCE BEFORE GETTING UP TO THE BEDSIDE COMMODE AND VERBALISED UNDERSTANDING OF FALL PREVENTION STRATEGIES. STAND-BY ASSISTANCE TO BSC. PO FLUIDS ENCOURAGED BUT HE DOES NOT HAVE A GOOD APPETITE AND IS NOT DRINKING A LOT. THIS WAS REPORTED TO DR OROZCO AND IVF RESTARTED. ON TELEMETRY IN SR, CALL FROM ERP BUSINESS ANALYST TO RN AT 0720 FOR 4 SECONDS SVT, NO OTHER CALLS. DR OROZCO INFORMED. PT C/O 07/29 LOWER ABDOMINAL DISCOMFORT BUT HAS NOT WANTED PAIN MEDS. BED LOW, CALL LIGHT IN REACH.
[2023-07-23 16:44] VITALS: BP 165/77
--- NOTE | 2023-07-23 16:46 | NUR ---
MD CALL TELEPHONE ORDER FROM DR OROZCO TO D/C TELEMETRY. NOTIFIED OF BLOOD PRESSURE.
[2023-07-23] MEDS ORDERED: Gabapentin 300 MG Cap PO SCH (18:00)
[2023-07-23 19:49] VITALS: BP 162/75
[2023-07-23] MEDS ORDERED: Prazosin HCl 1 MG Cap PO SCH (21:00)
[2023-07-23] MEDS ORDERED: Miconazole Nitrate 28 GM CREAM..G. TOP SCH (21:00)
[2023-07-23] MEDS ORDERED: Ranolazine 500 MG ER Tablet PO SCH (21:00)
[2023-07-23] MEDS ORDERED: BusPIRone HCl 10 MG Tab PO SCH (21:00)
[2023-07-24 03:19] VITALS: BP 151/77
[2023-07-24] MEDS ORDERED: Levothyroxine Sodium 0.088 MG Tab PO SCH (06:00)
--- NOTE | 2023-07-24 07:27 | NUR ---
END OF SHIFT SUMMARY PT REPORTS IMPROVEMENT IN DIZZINESS, ABLE TO TOLERATE GETTING OOB TO BSC WELL WITH SBA. NO EPISODES OF DIARRHEA THROUGHT NIGHT. PT C/O ABD PAIN, DECLINED PAIN INTERVENTION. NO ACUTE EVENTS OVERNIGHT.
[2023-07-24 07:57] VITALS: BP 150/80
[2023-07-24] MEDS ORDERED: Multivitamins 1 Tab PO SCH (09:00)
[2023-07-24] MEDS ORDERED: Sertraline HCl 100 MG Tab PO SCH (09:00)
[2023-07-24] MEDS ORDERED: PIMECROLIMUS 1% TOP SCH (09:00)
[2023-07-24] MEDS ORDERED: Cyanocobalamin 500 MCG Tab PO SCH (09:00)
[2023-07-24] MEDS ORDERED: Tamsulosin HCl 0.4 MG Cap PO SCH (09:00)
[2023-07-24] MEDS ORDERED: Lisinopril 10 MG Tab PO SCH (09:00)
[2023-07-24] MEDS ORDERED: Atorvastatin 40 MG Tab PO SCH (09:00)
[2023-07-24] MEDS ORDERED: Gabapentin 300 MG Cap PO SCH (09:00)
[2023-07-24] MEDS ORDERED: AmLODIPine Besylate 5 MG Tab PO SCH (09:00)
[2023-07-24 12:28] LABS: Hematocrit 27.8 % (37.0-53.0); Hemoglobin 9.1 g/dL (13.5-17.5); Mean Corpuscular HGB 31.7 pg (26.0-34.0); Mean Corpuscular HGB Conc 32.7 g/dL (31.5-36.5); Mean Corpuscular Volume 97 fL (80-100); Mean Platelet Volume 9.3 fL (9.1-12.4); Platelet Count 205 K/mm3 (150-400); RDW Coefficient Variation 17.2 % (11.7-14.2); RDW Standard Deviation 60.4 fL (35.1-46.3); Red Blood Cell Count 2.87 M/mm3 (4.30-5.90); White Blood Cell Count 9.74 K/mm3 (4.00-11.30)
[2023-07-24 14:15] VITALS: BP 134/76
--- NOTE | 2023-07-24 16:18 | NUR ---
SHIFT SUMMARY MR JIMENEZ IS HAVING DIZZY EPISODES LESS FREQUENTLY, SOMETIMES WHEN HE STANDS UP RATHER THAN EVERY TIME. HE HAS BEEN ABLE TO DRINK MORE FLUIDS TODAY AND IVF WERE DISCONTINUED. ONE EPISODE OF DIARRHEA STOOL SO FAR THIS SHIFT. C/O A LOT OF FLATULENCE. STAND BY ASSISTANCE TO WALK INTO BATHROOM AND PT USING CALL LIGHT APPROPRIATELY D/T PERIODIC DIZZYNESS AND RECENT FALL. STEADY TRANSFERING WITH FWW. SAT UP IN THE CHAIR FOR A FEW HOURS TODAY. BED LOW, CALL LIGHT IN REACH.
[2023-07-24 19:42] VITALS: BP 143/67
[2023-07-24] MEDS ORDERED: Apixaban 5 MG Tab PO SCH (21:00)
[2023-07-25 03:41] VITALS: BP 133/64
[2023-07-25 05:46] LABS: Hemoglobin 8.6 g/dL (13.5-17.5); Mean Corpuscular HGB 32.1 pg (26.0-34.0); Mean Corpuscular HGB Conc 33.1 g/dL (31.5-36.5); Mean Corpuscular Volume 97 fL (80-100); Mean Platelet Volume 9.4 fL (9.1-12.4); Platelet Count 200 K/mm3 (150-400); RDW Standard Deviation 60.6 fL (35.1-46.3); Red Blood Cell Count 2.68 M/mm3 (4.30-5.90); White Blood Cell Count 8.91 K/mm3 (4.00-11.30)
--- NOTE | 2023-07-25 06:03 | NUR ---
END OF SHIFT SUMMARY PT A&O&4. NO EPISODES OF DIARRHEA THROUGH NIGHT. VOIDING WITH HESITANCY. BLADDER SCAN COMPLETED SHOWING 294ML, PT ABLE TO EMPTY BLADDER AFTERWARD. PT AMBULATING WELL WITH SBA, REPORTS DIZZINESS IMPROVING. NO ACUTE EVENTS OVERNIGHT.
[2023-07-25 06:13] LABS: Calcium, Blood 7.6 mg/dL (8.5-10.1); Creatinine, Blood 1.18 mg/dL (0.60-1.20); Potassium, Blood 3.4 mmol/L (3.5-5.5)
[2023-07-25 07:15] VITALS: BP 141/78
[2023-07-25] MEDS ORDERED: Potassium Chloride 20 MEQ TabCR PO ONE (07:30)
[2023-07-25] MEDS ORDERED: ELIQUIS5 M2 PO (11:34)
[2023-07-25] MEDS ORDERED: DIFICID200 MG PO (11:35)
[2023-07-25] MEDS ORDERED: METO25 PO (11:35)
--- NOTE | 2023-07-25 12:12 | NUR ---
DISCHARGE NOTE MR JIMENEZ WAS DISCHARGED HOME AT 1210HRS. ASSISTED VIA WHEELCHAIR WITH COMPLAINT OPERATOR AND . PIV REMOVED INTACT. PT AND VERBALISED UNDERSTANDING OF WRITTEN AND VERBAL DISCHARGE INSTRUCTIONS. MR JIMENEZ HAD MINIMAL ABDOMINAL DISCOMFORT TODAY. NO LOOSE STOOL. NO QUESTIONS OR CONCERNS VOICED AT DISCHARGE.
--- NOTE | 2023-07-25 14:40 | NUR ---
MR JIMENEZ AND HIS RETURNED TO MEDICAL UNIT. THEY HAVE BEEN UNABLE TO GET ABX THAT WAS PRESCRIBED THEY WERE TOLD IT IS NOT AVAILABLE. DR OROZCO NOTIFIED. TELEPHONE ORDER FOR VANCOMYCIN 125MG PO QID FOR [address] OROZCO. PRESCRIPTION CALLED IN TO [facility].
--- NOTE | 2023-07-25 15:06 | NUR ---
EDWIN JONES COST IS GREATER THAN 1000$. PT IS TAKING [address] OROZCO NOTIFIED, HE IS GOING TO WRITE A SCRIPT FOR MR JIMENEZ TO INSTRUCTIONAL TECHNOLOGY FACILITATOR HERE TOMORROW AND HE WILL CALL MRS JIMENEZ TO NOTIFY. (PT CAN TAKE TO [facility] INFORMATION CLERK CASHIER NOTIFIED.
[2023-07-28] MEDS ORDERED: Methotrexate Sod 2.5 MG Tab PO SCH (09:00)
== END 2023-07-25 12:05 | disposition home or self-care (01) | DRG 373 ==
LOC: ER 20:51 → MEDS 20:52
PROVIDERS: Emergency Medicine; Internal Medicine; Nurse Practitioner; ADMIT Student in an Organized Health Care Education/Training Program
DX: A04.72 Enterocolitis due to Clostridium difficile, not specified as recurrent (principal); I48.91 Unspecified atrial fibrillation; N18.30 Chronic kidney disease, stage 3 unspecified; E87.6 Hypokalemia; I12.9 Hypertensive chronic kidney disease with stage 1 through stage 4 chronic kidney disease, or unspecified chronic kidney disease; G47.33 Obstructive sleep apnea (adult) (pediatric); Z88.5 Allergy status to narcotic agent
CPT/HCPCS: 36415; 71046; 71275; 74177; 80048; 80053; 81001; 82272; 83690; 83735; 84484; 85025; 85027; 85610; 85730; 87324; 87507; 93005; 93010; 96365-59; 96366; 99285-25; A9270; G0378; J3480; J7030; J7050; J7120; Q9967

== ENCOUNTER 2024-01-04 14:13 | Observation (INO) | payer OTHER ==
[~2024-01-04] VITALS: Ht 182.9 cm; Wt 83.9 kg
[~2024-01-04 14:13] MED LIST changes: +DIFICID200 MG PO; +ELIQUIS5 M2 PO; +LOPE2C; +METO25 PO
[2024-01-04 15:05] LABS: BASOPHILS ABSOLUTE AUTO 0.01 K/mm3 (0.00-0.23); BASOPHILS PERCENT AUTO 0 % (0-2); EOSINOPHILS ABSOLUTE AUTO 0.05 K/mm3 (0.00-0.68); EOSINOPHILS PERCENT AUTO 1 % (0-6); Hematocrit 33.3 % (37.0-53.0); Hemoglobin 11.1 g/dL (13.5-17.5); IMMATURE GRAN ABSOLUTE AUTO 0.03 K/mm3 (0.00-0.10); IMMATURE GRAN PERCENT AUTO 1 % (0-1); LYMPHOCYTES ABSOLUTE AUTO 0.61 K/mm3 (0.84-5.20); LYMPHOCYTES PERCENT AUTO 10 % (21-46); MONOCYTES ABSOLUTE AUTO 0.56 K/mm3 (0.16-1.47); MONOCYTES PERCENT AUTO 9 % (4-13); Mean Corpuscular HGB 35.4 pg (26.0-34.0); Mean Corpuscular HGB Conc 33.3 g/dL (31.5-36.5); Mean Corpuscular Volume 106 fL (80-100); Mean Platelet Volume 9.9 fL (9.1-12.4); NEUTROPHILS ABSOLUTE AUTO 4.72 K/mm3 (1.96-9.15); NEUTROPHILS PERCENT AUTO 79 % (41-73); Platelet Count 149 K/mm3 (150-400); RDW Coefficient Variation 14.5 % (11.7-14.2); RDW Standard Deviation 55.5 fL (35.1-46.3); Red Blood Cell Count 3.14 M/mm3 (4.30-5.90); White Blood Cell Count 5.98 K/mm3 (4.00-11.30)
[2024-01-04 15:29] LABS: Albumin, Blood 3.1 g/dL (3.4-5.0); Albumin/Globulin Ratio 0.8 (0.8-1.8); Bilirubin, Total 0.5 mg/dL (0.1-1.0); Bun/Creatinine Ratio 12.3 (12.0-20.0); Calcium, Blood 8.8 mg/dL (8.5-10.1); Creatinine, Blood 1.22 mg/dL (0.60-1.20); Globulin, Blood 3.9 g/dL (2.2-4.0); Potassium, Blood 3.4 mmol/L (3.5-5.5)
[2024-01-04] MEDS ORDERED: Potassium Chloride 20 MEQ TabCR PO ONE (17:35)
[2024-01-04 17:47] LABS: Source, Urine Clean Catch
[2024-01-04 17:49] LABS: Appearance, Urine Clear (Clear); Bilirubin, Urine Neg (Neg); Blood, Urine Neg (Neg); Color, Urine Yellow (P-Yellow); Glucose Qualitative, Urine Neg (Neg); Ketones, Urine Neg (Neg); Leukocyte Esterase, Urine 1+ (Neg); Nitrite, Urine Neg (Neg); Protein, Urine 1+ (Neg); Specific Gravity, Urine 1.015 (1.003-1.022); Urobilinogen, Urine 1+ (Normal)
[2024-01-04 18:08] LABS: Bacteria Many /hpf; Mucus Light (0-Heavy); Red Blood Cells, Urine 0-2 /hpf (0-2); Squamous Epithelial Cells Rare /hpf (Few)
[2024-01-04] MEDS ORDERED: Ondansetron HCl 2 MG / ML 2ML Vial IV PRN (18:45)
[2024-01-04] MEDS ORDERED: FLU VACC TS2024-25(6MOS UP)/PF 45 MCG/0.5 ML SYRINGE IM SCH (18:45)
[2024-01-04] MEDS ORDERED: NS 1,000 ML IV SCH (18:45)
[2024-01-04] MEDS ORDERED: Acetaminophen 325 MG TABLET PO PRN (18:45)
[2024-01-04] MEDS ORDERED: NS 500 ML IV ONE (19:00)
[2024-01-04] MEDS ORDERED: CefTRIAXone Sodium 1,000 MG in NS 100 ML IV SCH (19:30)
[2024-01-04] MEDS ORDERED: NS 1,000 ML IV ONE (19:57)
[2024-01-04 20:41] VITALS: BP 190/94
[2024-01-04 20:48] VITALS: BP 200/93
[2024-01-04] MEDS ORDERED: Metoprolol Tartrate 25 MG Tab PO SCH (21:00)
[2024-01-04] MEDS ORDERED: Apixaban 5 MG Tab PO SCH (21:00)
[2024-01-04] MEDS ORDERED: Gabapentin 300 MG Cap PO SCH (21:00)
[2024-01-04] MEDS ORDERED: BusPIRone HCl 10 MG Tab PO SCH (21:00)
[2024-01-04] MEDS ORDERED: Ranolazine 500 MG ER Tablet PO SCH (21:00)
[2024-01-04] MEDS ORDERED: Meclizine HCl 25 MG Tab PO SCH (21:00)
[2024-01-04] MEDS ORDERED: Lactobacil 2-S.Thermo-Bifido 1 1 Cap PO SCH (21:00)
[2024-01-04] MEDS ORDERED: Prazosin HCl 1 MG Cap PO SCH (21:00)
[2024-01-04 21:49] VITALS: BP 185/80
[2024-01-04 21:53] VITALS: BP 160/90
[2024-01-04 22:15] VITALS: BP 172/86
[2024-01-05 04:20] VITALS: BP 153/79
--- NOTE | 2024-01-05 04:54 | NUR ---
SHIFT SUMMARY PT ARRIVED TO ROOM 301 VIA WHEELCHAIR AROUND 2039. PT WAS A SBA TO THE HOSPITAL BED. PT ORIENTED TO ROOM AND CALL LIGHT. CARLITO IS A&OX4, FORGETFUL AT TIMES, AND COOPERATIVE. HTN, BUT ORTHOSTATIC BP IS NEGATIVE. OTHER VS ARE WNL ON RA. PER TELEMETRY PT IS SB @ 58 TO SR @ 69 BPM. DENIES PAIN. TOLERATING A REGULAR DIET. TAKES HIS PILLS WHOLE, MULTIPLE AT A TIME WITH WATER. USING A URINAL INDEPENDENTLY IN BED. VOIDING ADEQUATE AMOUNTS OF CLEAR, LIGHT YELLOW URINE. NO BM THIS SHIFT. BED IN LOWEST POSITION, CALL LIGHT WITHIN REACH. USES CALL LIGHT APPROPRIATELY AND IS ABLE TO MAKE NEEDS KNOWN.
[2024-01-05 05:05] LABS: Hematocrit 31.2 % (37.0-53.0); Hemoglobin 10.4 g/dL (13.5-17.5); Mean Corpuscular HGB Conc 33.3 g/dL (31.5-36.5); Mean Corpuscular Volume 105 fL (80-100); Mean Platelet Volume 9.8 fL (9.1-12.4); Platelet Count 157 K/mm3 (150-400); RDW Coefficient Variation 14.4 % (11.7-14.2); RDW Standard Deviation 54.4 fL (35.1-46.3); Red Blood Cell Count 2.97 M/mm3 (4.30-5.90); White Blood Cell Count 4.81 K/mm3 (4.00-11.30)
[2024-01-05 05:28] LABS: Bun/Creatinine Ratio 12.7 (12.0-20.0); Calcium, Blood 8.5 mg/dL (8.5-10.1); Creatinine, Blood 1.1 mg/dL (0.60-1.20); Potassium, Blood 3.5 mmol/L (3.5-5.5)
[2024-01-05] MEDS ORDERED: Levothyroxine Sodium 0.088 MG Tab PO SCH (06:00)
[2024-01-05 07:29] VITALS: BP 157/82
[2024-01-05] MEDS ORDERED: Gabapentin 300 MG Cap PO SCH (09:00)
[2024-01-05] MEDS ORDERED: Sertraline HCl 100 MG Tab PO SCH (09:00)
[2024-01-05] MEDS ORDERED: AmLODIPine Besylate 5 MG Tab PO SCH (09:00)
[2024-01-05] MEDS ORDERED: Lisinopril 10 MG Tab PO SCH (09:00)
[2024-01-05] MEDS ORDERED: Atorvastatin 40 MG Tab PO SCH (09:00)
[2024-01-05] MEDS ORDERED: MECL25 PO (11:53)
--- NOTE | 2024-01-05 14:21 | NUR ---
DISCHARGED TO HOME
--- NOTE | 2024-01-05 14:57 | NUR ---
DISCHARGE INSTRUCTIONS GIVEN TO PATIENT AND SIGNIFIGAT OTHER, BOTH STATED UNDERSTANDING OF MEDICATION CHANGES, FOLLOW UP NEEDS, AND INSTRUCTIONS, BOTH DENIED FURTHER QUESTIONS, LEFT VIA W/C. PLEASANT TO CARE
[2024-01-05] MEDS ORDERED: Methotrexate Sod 2.5 MG Tab PO SCH (18:50)
[2024-01-05] MEDS ORDERED: Tamsulosin HCl 0.4 MG Cap PO SCH (21:00)
== END 2024-01-05 14:23 | disposition home or self-care (01) ==
LOC: ER 14:13 → MEDS 14:14 → ERHOLD 14:14 → MEDS 20:27 → ENPENDDIS 01-05 11:42 → MEDS 01-05 14:23
PROVIDERS: Nurse Practitioner Acute Care; Physician Assistant; Student in an Organized Health Care Education/Training Program; ADMIT Internal Medicine
DX: R55 Syncope and collapse (principal); R42 Dizziness and giddiness; N39.0 Urinary tract infection, site not specified; E87.6 Hypokalemia; I12.9 Hypertensive chronic kidney disease with stage 1 through stage 4 chronic kidney disease, or unspecified chronic kidney disease; N18.30 Chronic kidney disease, stage 3 unspecified; G47.33 Obstructive sleep apnea (adult) (pediatric); N40.0 Benign prostatic hyperplasia without lower urinary tract symptoms; I48.91 Unspecified atrial fibrillation; E03.9 Hypothyroidism, unspecified; Z87.891 Personal history of nicotine dependence; Z79.01 Long term (current) use of anticoagulants; Z79.890 Hormone replacement therapy; Z79.899 Other long term (current) drug therapy; Z88.5 Allergy status to narcotic agent; Z91.013 Allergy to seafood
CPT/HCPCS: 36415; 70450; 76770; 80048; 80053; 81001; 85025; 85027; 93005; 93010; 96365-59; 97110; 97116; 97161; 99285-25; A9270; G0378; J0696; J7030

== ENCOUNTER → 2024-01-24 | Outpatient (CLI) | payer OTHER ==
[~2024-01-24] MED LIST changes: +MECL25 PO
[2024-02-01 07:53] LABS: CALCIUM, URINE - PER 24H 156 mg/d (100-250); CALCIUM, URINE - PER VOLUME 7.1 mg/dL; CHLORIDE, URINE - PER 24H 73 mmol/d (140-250); CHLORIDE, URINE - PER VOLUME 33 mmol/L; CITRIC ACID, URINE - PER 24H 240 mg/d (320-1240); CITRIC ACID,URINE - PER VOLUME 109 mg/L; CREATININE, URINE - PER 24H 1210 mg/d (800-2100); CREATININE, URINE - PER VOLUME 55 mg/dL; HOURS COLLECTED 24 hr; MAGNESIUM, URINE - PER VOLUME 4.1 mg/dL; MAGNESIUM, URINE PER 24H 90 mg/d (12-199); OXALATE, URINE - PER 24H 42 mg/d (16-49); OXALATE, URINE - PER VOLUME 19 mg/L; PH, URINE 6.33 (5.00-7.50); PHOSPHORUS, URINE - PER 24H 572 mg/d (400-1300); PHOSPHORUS, URINE - PER VOLUME 26 mg/dL; POTASSIUM, URINE - PER 24H 33 mmol/d (25-125); POTASSIUM, URINE - PER VOLUME 15 mmol/L; SODIUM, URINE - PER 24H 86 mmol/d (51-286); SODIUM, URINE - PER VOLUME 39 mmol/L; SULFATE, URINE - PER 24H < 5 mmol/d (6-30); SULFATE, URINE - PER VOLUME <5 mmol/L; TOTAL VOLUME 2200 mL; URIC ACID, URINE - PER 24H 376 mg/d (250-750); URIC ACID, URINE - PER VOLUME 17.1 mg/dL; URINE SUPERSATURATION INTERP Abnormal; URINE SUPERSATURATION, CAHPO4 1.46; URINE SUPERSATURATION, CAOX 6.38; URINE SUPERSATURATION, UA CALC 0.14
== END ==
LOC: LAB 15:10 → LAB SHORT 15:10
PROVIDERS: Physician Assistant
DX: N20.1 Calculus of ureter (principal)
CPT/HCPCS: 81003; 82131; 82140; 82340; 82436; 82507; 82570; 83735; 83935; 83945; 84105; 84133; 84300; 84392; 84560

== ENCOUNTER 2024-07-31 13:19 | Emergency (ER) | payer OTHER ==
[~2024-07-31] VITALS: Ht 182.9 cm; Wt 81.7 kg
[2024-07-31 15:41] VITALS: BP 173/90
== END 2024-07-31 15:39 | disposition home or self-care (01) ==
LOC: ER 13:19
DX: R55 Syncope and collapse (principal); I12.9 Hypertensive chronic kidney disease with stage 1 through stage 4 chronic kidney disease, or unspecified chronic kidney disease; N18.30 Chronic kidney disease, stage 3 unspecified; G47.33 Obstructive sleep apnea (adult) (pediatric); Z88.5 Allergy status to narcotic agent; Z91.013 Allergy to seafood; Z79.890 Hormone replacement therapy; Z79.01 Long term (current) use of anticoagulants; Z79.899 Other long term (current) drug therapy

== ENCOUNTER 2024-12-21 21:47 | Emergency (ER) | payer OTHER ==
[~2024-12-21] VITALS: Ht 182.9 cm; Wt 90.7 kg
[~2024-12-21 21:47] MED LIST changes: +CHLO25B PO; +POLY500 PO; +POTA10T PO; +PRAZ2 PO; +VENL150ER PO
[2024-12-21 22:16] VITALS: BP 177/96
[2024-12-21 23:49] LABS: BASOPHILS ABSOLUTE AUTO 0.02 K/mm3 (0.00-0.23); BASOPHILS PERCENT AUTO 0 % (0-2); EOSINOPHILS ABSOLUTE AUTO 0.08 K/mm3 (0.00-0.68); EOSINOPHILS PERCENT AUTO 1 % (0-6); Hematocrit 32.1 % (37.0-53.0); Hemoglobin 11.0 g/dL (13.5-17.5); IMMATURE GRAN ABSOLUTE AUTO 0.05 K/mm3 (0.00-0.10); IMMATURE GRAN PERCENT AUTO 1 % (0-1); LYMPHOCYTES ABSOLUTE AUTO 0.58 K/mm3 (0.84-5.20); LYMPHOCYTES PERCENT AUTO 7 % (21-46); MONOCYTES ABSOLUTE AUTO 0.77 K/mm3 (0.16-1.47); MONOCYTES PERCENT AUTO 9 % (4-13); Mean Corpuscular HGB Conc 34.3 g/dL (31.5-36.5); Mean Corpuscular Volume 104 fL (80-100); NEUTROPHILS ABSOLUTE AUTO 6.69 K/mm3 (1.96-9.15); NEUTROPHILS PERCENT AUTO 82 % (41-73); NRBC ABSOLUTE 0.00 K/mm3 (0.00-0.02); NRBC Auto 0.0 /100 WBC (0.0-0.2); Platelet Count 189 K/mm3 (150-400); RDW Coefficient Variation 14.5 % (11.7-14.2); RDW Standard Deviation 54.6 fL (35.1-46.3)
[2024-12-22 00:01] LABS: Alanine Aminotransfer (ALT/SGP 38.0 U/L (12-78); Albumin, Blood 3.4 g/dL (3.4-5.0); Albumin/Globulin Ratio 0.9 (0.8-1.8); Anion Gap 9.0 mmol/L (3-11); Aspartate Aminotrans (AST/SGOT 26.0 U/L (12-37); Bilirubin, Total 0.7 mg/dL (0.1-1.0); Blood Urea Nitrogen 22.0 mg/dL (8-24); CO2, Blood 29.0 mmol/L (21-32); Calcium, Blood 9.2 mg/dL (8.5-10.1); Chloride, Blood 98.0 mmol/L (98-108); Creatinine, Blood 1.34 mg/dL (0.60-1.20); Globulin, Blood 3.6 g/dL (2.2-4.0); Glucose, Blood 102.0 mg/dL (70-99); Magnesium, Blood 1.8 mg/dL (1.6-2.4); Potassium, Blood 3.3 mmol/L (3.5-5.5); Sodium, Blood 133.0 mmol/L (136-145); Total Protein, Blood 7.0 g/dL (6.4-8.2)
== END 2024-12-22 01:39 | disposition home or self-care (01) ==
LOC: ER 21:47
PROVIDERS: Emergency Medicine
DX: R25.1 Tremor, unspecified (principal); E87.6 Hypokalemia; D63.1 Anemia in chronic kidney disease; N18.9 Chronic kidney disease, unspecified; E87.1 Hypo-osmolality and hyponatremia; I10 Essential (primary) hypertension; Z79.01 Long term (current) use of anticoagulants; E78.5 Hyperlipidemia, unspecified; G47.33 Obstructive sleep apnea (adult) (pediatric); Z87.891 Personal history of nicotine dependence; Z88.5 Allergy status to narcotic agent; Z91.013 Allergy to seafood
CPT/HCPCS: 80053; 82947; 83735; 85025; 93005; 93010; 99283-25; A9270

== ENCOUNTER 2025-02-19 16:58 | Emergency (ER) | payer OTHER ==
[~2025-02-19] VITALS: Ht 182.9 cm; Wt 86.2 kg
[2025-02-19 17:33] LABS: BASOPHILS ABSOLUTE AUTO 0.02 K/mm3 (0.00-0.23); BASOPHILS PERCENT AUTO 0 % (0-2); EOSINOPHILS ABSOLUTE AUTO 0.07 K/mm3 (0.00-0.68); EOSINOPHILS PERCENT AUTO 1 % (0-6); Hematocrit 35.6 % (37.0-53.0); Hemoglobin 11.9 g/dL (13.5-17.5); IMMATURE GRAN ABSOLUTE AUTO 0.03 K/mm3 (0.00-0.10); IMMATURE GRAN PERCENT AUTO 0 % (0-1); LYMPHOCYTES ABSOLUTE AUTO 0.67 K/mm3 (0.84-5.20); LYMPHOCYTES PERCENT AUTO 9 % (21-46); MONOCYTES ABSOLUTE AUTO 0.50 K/mm3 (0.16-1.47); MONOCYTES PERCENT AUTO 7 % (4-13); Mean Corpuscular HGB Conc 33.4 g/dL (31.5-36.5); Mean Corpuscular Volume 103 fL (80-100); NEUTROPHILS ABSOLUTE AUTO 6.18 K/mm3 (1.96-9.15); NEUTROPHILS PERCENT AUTO 83 % (41-73); NRBC ABSOLUTE 0.00 K/mm3 (0.00-0.02); NRBC Auto 0.0 /100 WBC (0.0-0.2); Platelet Count 151 K/mm3 (150-400); RDW Coefficient Variation 13.5 % (11.7-14.2); RDW Standard Deviation 50.4 fL (35.1-46.3)
[2025-02-19 17:57] LABS: Alanine Aminotransfer (ALT/SGP 38.0 U/L (12-78); Albumin, Blood 3.2 g/dL (3.4-5.0); Albumin/Globulin Ratio 0.8 (0.8-1.8); Anion Gap 8.0 mmol/L (3-11); Aspartate Aminotrans (AST/SGOT 39.0 U/L (12-37); Bilirubin, Total 0.6 mg/dL (0.1-1.0); Blood Urea Nitrogen 18.0 mg/dL (8-24); CO2, Blood 29.0 mmol/L (21-32); Calcium, Blood 9.3 mg/dL (8.5-10.1); Chloride, Blood 101.0 mmol/L (98-108); Creatinine, Blood 1.55 mg/dL (0.60-1.20); Globulin, Blood 4.1 g/dL (2.2-4.0); Glucose, Blood 111.0 mg/dL (70-99); Potassium, Blood 3.8 mmol/L (3.5-5.5); Sodium, Blood 134.0 mmol/L (136-145); Total Protein, Blood 7.3 g/dL (6.4-8.2)
[2025-02-19] MEDS ORDERED: Morphine Sulfate 4 MG/1 ML Injection IV ONE (19:40)
[2025-02-19 20:15] VITALS: BP 158/109
== END 2025-02-19 20:40 | disposition home or self-care (01) ==
LOC: ER 16:58
PROVIDERS: Emergency Medicine
DX: R07.89 Other chest pain (principal); Z88.5 Allergy status to narcotic agent; Z91.013 Allergy to seafood; Z79.899 Other long term (current) drug therapy; Z87.891 Personal history of nicotine dependence; Z87.442 Personal history of urinary calculi; N18.30 Chronic kidney disease, stage 3 unspecified; G47.33 Obstructive sleep apnea (adult) (pediatric); I48.91 Unspecified atrial fibrillation
CPT/HCPCS: 71046; 71275; 80053; 83690; 84484; 85025; 93005; 93010; 96374-59; 99285-25; J2270; Q9967

== ENCOUNTER 2025-03-05 15:59 | Emergency (ER) | payer OTHER ==
[~2025-03-05] VITALS: Ht 182.9 cm; Wt 83.9 kg
[2025-03-05 17:06] LABS: BASOPHILS ABSOLUTE AUTO 0.02 K/mm3 (0.00-0.23); BASOPHILS PERCENT AUTO 0 % (0-2); EOSINOPHILS ABSOLUTE AUTO 0.05 K/mm3 (0.00-0.68); EOSINOPHILS PERCENT AUTO 1 % (0-6); Hematocrit 32.8 % (37.0-53.0); Hemoglobin 10.8 g/dL (13.5-17.5); IMMATURE GRAN ABSOLUTE AUTO 0.04 K/mm3 (0.00-0.10); IMMATURE GRAN PERCENT AUTO 1 % (0-1); LYMPHOCYTES ABSOLUTE AUTO 0.75 K/mm3 (0.84-5.20); LYMPHOCYTES PERCENT AUTO 12 % (21-46); MONOCYTES ABSOLUTE AUTO 0.55 K/mm3 (0.16-1.47); MONOCYTES PERCENT AUTO 9 % (4-13); Mean Corpuscular HGB Conc 32.9 g/dL (31.5-36.5); Mean Corpuscular Volume 103 fL (80-100); NEUTROPHILS ABSOLUTE AUTO 4.74 K/mm3 (1.96-9.15); NEUTROPHILS PERCENT AUTO 77 % (41-73); NRBC ABSOLUTE 0.00 K/mm3 (0.00-0.02); NRBC Auto 0.0 /100 WBC (0.0-0.2); Platelet Count 171 K/mm3 (150-400); RDW Coefficient Variation 13.9 % (11.7-14.2); RDW Standard Deviation 52.6 fL (35.1-46.3)
[2025-03-05 17:33] LABS: Alanine Aminotransfer (ALT/SGP 26.0 U/L (12-78); Albumin, Blood 3.1 g/dL (3.4-5.0); Albumin/Globulin Ratio 0.9 (0.8-1.8); Anion Gap 8.0 mmol/L (3-11); Aspartate Aminotrans (AST/SGOT 19.0 U/L (12-37); Bilirubin, Total 0.3 mg/dL (0.1-1.0); Blood Urea Nitrogen 24.0 mg/dL (8-24); CO2, Blood 27.0 mmol/L (21-32); Calcium, Blood 8.7 mg/dL (8.5-10.1); Chloride, Blood 106.0 mmol/L (98-108); Creatinine, Blood 1.55 mg/dL (0.60-1.20); Globulin, Blood 3.5 g/dL (2.2-4.0); Glucose, Blood 95.0 mg/dL (70-99); Potassium, Blood 3.4 mmol/L (3.5-5.5); Sodium, Blood 138.0 mmol/L (136-145); Total Protein, Blood 6.6 g/dL (6.4-8.2)
[2025-03-05] MEDS ORDERED: NS 1,000 ML IV SCH (17:55)
[2025-03-05] MEDS ORDERED: MOTION RELIEF25 MG PO (20:06)
[2025-03-05 20:15] VITALS: BP 188/86
== END 2025-03-05 20:27 | disposition home or self-care (01) ==
LOC: ER 15:59
PROVIDERS: Emergency Medicine
DX: S09.90XA Unspecified injury of head, initial encounter (principal); W18.2XXA Fall in (into) shower or empty bathtub, initial encounter; H81.10 Benign paroxysmal vertigo, unspecified ear; I12.9 Hypertensive chronic kidney disease with stage 1 through stage 4 chronic kidney disease, or unspecified chronic kidney disease; N18.30 Chronic kidney disease, stage 3 unspecified; I48.91 Unspecified atrial fibrillation; Z79.01 Long term (current) use of anticoagulants; Z79.890 Hormone replacement therapy; Z79.899 Other long term (current) drug therapy; Z88.5 Allergy status to narcotic agent; Z91.013 Allergy to seafood; Z87.891 Personal history of nicotine dependence
CPT/HCPCS: 70450; 72125; 80053; 83735; 84484; 85025; 99284-25; J7030